=== PATIENT | female | born 1995 | race Two or more races ===

== ENCOUNTER 2025-08-20 13:59 | Emergency (ER) | payer MEDICAID ==
[~2025-08-20] VITALS: Ht 157.5 cm; Wt 74.0 kg
[2025-08-20 14:01] VITALS: TEMP 36.7; O2SAT 99
[2025-08-20 14:28] LABS: CLARITY URINE CLEAR (CLEAR); COLOR URINE YELLOW (YELLOW); GLUCOSE URINE NEGATIVE (NEGATIVE); KETONES URINE NEGATIVE (NEGATIVE); LEUKOCYTE ESTERASE URINE TRACE (NEGATIVE); NITRITE URINE NEGATIVE (NEGATIVE); OCCULT BLOOD URINE NEGATIVE (NEGATIVE); PH URINE 6.5 (4.5-8.0); PROTEIN URINE NEGATIVE (NEGATIVE); SPECIFIC GRAVITY URINE 1.021 (1.005-1.030); UROBILINOGEN URINE 0.2 E.U./dL (0.2-1.0)
[2025-08-20 15:07] LABS: *AMPHETAMINES SCREEN URINE NEGATIVE (NEGATIVE); *BARBITURATES SCREEN URINE NEGATIVE (NEGATIVE); *BENZODIAZEPINES SCREEN URINE NEGATIVE (NEGATIVE); *COCAINE SCREEN URINE NEGATIVE (NEGATIVE); METHADONE URINE SCREEN NEGATIVE (NEGATIVE); OPIATES URINE SCREEN NEGATIVE (NEGATIVE)
[2025-08-20 15:08] LABS: CANNABINOID URINE SCREEN NEGATIVE (NEGATIVE); ECSTASY MDMA SCREEN URINE NEGATIVE (NEGATIVE); PHENCYCLIDINE URINE SCREEN NEGATIVE (NEGATIVE)
[2025-08-20 15:09] LABS: BASOPHILS % 0.3 % (0.0-2.0); EOSINOPHILS % 1.0 % (0.0-5.0); HEMATOCRIT. 33.1 % (36.0-48.0); HEMOGLOBIN. 10.8 g/dL (12.0-16.0); LYMPHOCYTES % 22.8 % (20.0-50.0); MEAN PLATELET VOLUME 10.0 fl (7.4-10.4); MONOCYTES % 8.6 % (2.0-8.0); NEUTROPHILS % 67.3 % (40.0-76.0); PLATELET 190 x1000/uL (130-400); RED BLOOD CELL COUNT 3.97 mill/uL (4.2-5.4); RED CELL DISTRIBUTION WIDTH 14.3 % (11.6-14.6)
[2025-08-20 15:15] LABS: SQUAMOUS EPITHELIAL CELL URINE 2+ /lpf (RARE/1+)
[2025-08-20 15:16] LABS: BACTERIA URINE NONE SEEN; RBC URINE NONE SEEN /hpf (0-2); WBC URINE 0-2 /hpf (0-2)
[2025-08-20 15:19] LABS: INR 0.9
[2025-08-20 15:23] LABS: CREATININE 0.5 mg/dL (0.6-1.0); UREA NITROGEN BLOOD < 5 mg/dL (9-23)
[2025-08-20 15:24] LABS: ETHANOL BLOOD < 10 mg/dL (<10); PROTEIN TOTAL 5.9 g/dL (6.0-8.3)
[2025-08-20 15:25] LABS: ASPARTATE AMINOTRANSFERASE 12 IU/L (<34); BILIRUBIN DIRECT < 0.1 mg/dL (<=3.0); HCG SCREEN POSITIVE
[2025-08-20 15:26] LABS: BILIRUBIN TOTAL 0.3 mg/dL (0.1-1.0)
[2025-08-20 15:42] LABS: B-HCG QUANTITATIVE 11995 mIU/mL (<6)
[2025-08-20 16:09] VITALS: BP 125/56; PULSE 84; RESP 15; O2SAT 98
== END 2025-08-20 16:13 | disposition left against medical advice (07) ==
LOC: ER 13:59
DX: O36.8130 Decreased fetal movements, third trimester, not applicable or unspecified (principal); R10.20 Pelvic and perineal pain unspecified side; Z3A.38 38 weeks gestation of pregnancy; Z79.899 Other long term (current) drug therapy; Z98.890 Other specified postprocedural states
CPT/HCPCS: 36415; 76815; 80048; 80076; 80305; 80320; 81003; 83735; 84702; 84703; 85025; 86850; 86900; 99284; G0480